=== PATIENT | female | born 1960 | race Caucasian/White ===

== ENCOUNTER 2021-12-18 18:20 | Inpatient (IN) | payer BC ==
[~2021-12-18] VITALS: Ht 160 cm; Wt 66.0 kg
[2021-12-18 19:00] VITALS: BP_SYST 156
[2021-12-18] MEDS ORDERED: MAG HYDROX/AL HYDROX/SIMETH 30 ML, LIDOCAINE VISCOUS 2% 15ML (PO) 15 ML, DICYCLOMINE HC... PO ONE ×3 (21:00)
[2021-12-18] MEDS ORDERED: MECLIZINE HCL 25 MG TABLET (ANITVERT) PO ONE (21:00)
[2021-12-18 21:29] LABS: BASOPHILS % (AUTO) 0.4 % (0.0-2.0); EOSINOPHILS % (AUTO) 0.3 % (0.0-4.0); HEMATOCRIT 42.9 % (36-48); LYMPHOCYTES # (AUTO) 0.6 K/uL (1.0-5.5); LYMPHOCYTES % (AUTO) 8.1 % (20.5-51.5); MEAN CORPUSCULAR VOLUME 93 fL (79.0-98.0); MONOCYTES # (AUTO) 0.4 K/uL (0.0-1.0); MONOCYTES % (AUTO) 5.4 % (1.7-9.3); NEUTROPHILS # (AUTO) 6.7 K/uL (1.8-7.7); NEUTROPHILS % (AUTO) 85.8 % (40.0-70.0); PLATELET COUNT (AUTO) 219 K/uL (130-430); RED BLOOD CELL COUNT(AUTO) 4.61 MIL/uL (4.2-6.2); RED CELL DISTRIBUTION WIDTH 12.4 % (9.0-15.0); WHITE BLOOD COUNT (AUTO) 7.9 K/uL (4.8-10.8)
[2021-12-18 21:30] LABS: ANION GAP 7 (5-15); CALCIUM 9.6 mg/dL (8.4-11.0); CHLORIDE 102 mmol/L (98-107); CREATININE 0.94 mg/dL (0.55-1.30); GLUCOSE 129 mg/dL (70-99); POTASSIUM 3.8 mmol/L (3.5-5.1); UREA NITROGEN, BLOOD 11 mg/dL (8-21)
[2021-12-18 21:31] LABS: GFR AFRICAN AMERICAN 78 mL/min (>90)
[2021-12-18 21:39] LABS: ALANINE AMINOTRANSFERASE 26 U/L (12-78); ALBUMIN 3.9 g/dL (3.4-4.8); ASPARTATE AMINOTRANSFERASE 26 U/L (10-37); TOTAL BILIRUBIN 1.3 mg/dL (0.0-1.0)
[2021-12-19] MEDS ORDERED: ASPIRIN 325 MG TABLET PO ONE (00:15)
[2021-12-19] MEDS ORDERED: ASPI-859 PO (01:47)
[2021-12-19] MEDS ORDERED: ESCI10TA PO (01:48)
[2021-12-19] MEDS ORDERED: METO25TA6 PO (01:49)
[2021-12-19] MEDS ORDERED: SIMV-343 PO (02:06)
[2021-12-19] MEDS ORDERED: ONDANSETRON HCL 4 MG/2 ML VIAL IVP PRN (02:30)
[2021-12-19] MEDS ORDERED: LORazepam 2 MG/ML VIAL IVP PRN (02:30)
[2021-12-19] MEDS ORDERED: HYDROcodone/ACETAMIN 5-325 MG TAB (NORCO/ VICODIN) PO PRN (02:30)
[2021-12-19] MEDS ORDERED: NALOXONE HCL 0.4 MG/ML AMP (NARCAN) IVP PRN ×2 (02:30)
[2021-12-19] MEDS ORDERED: HYDROcodone/ACETAMIN 10-325 MG TAB PO PRN (02:30)
[2021-12-19] MEDS ORDERED: MECLIZINE HCL 25 MG TABLET (ANITVERT) PO PRN (02:30)
[2021-12-19 03:35] VITALS: BP_SYST 141
[2021-12-19 04:00] VITALS: BP_SYST 139
[2021-12-19] MEDS ORDERED: NORMAL SALINE 5 ML DISP.SYRIN IVF SCH (06:00)
[2021-12-19] MEDS ORDERED: FLU VACC QS2022-23(6MOS UP)/PF 0.5 ML/SYR SYRINGE I.M. PRN (07:30)
[2021-12-19 08:00] VITALS: BP_SYST 113
[2021-12-19 08:38] LABS: BASOPHILS # (AUTO) 0.1 K/uL (0.0-0.2); BASOPHILS % (AUTO) 0.8 % (0.0-2.0); EOSINOPHILS # (AUTO) 0.1 K/uL (0.0-0.4); EOSINOPHILS % (AUTO) 1.4 % (0.0-4.0); HEMATOCRIT 41.6 % (36-48); LYMPHOCYTES # (AUTO) 1.2 K/uL (1.0-5.5); LYMPHOCYTES % (AUTO) 17.2 % (20.5-51.5); MEAN CORPUSCULAR VOLUME 93 fL (79.0-98.0); MONOCYTES # (AUTO) 0.6 K/uL (0.0-1.0); MONOCYTES % (AUTO) 8.8 % (1.7-9.3); NEUTROPHILS # (AUTO) 4.9 K/uL (1.8-7.7); NEUTROPHILS % (AUTO) 71.8 % (40.0-70.0); PLATELET COUNT (AUTO) 216 K/uL (130-430); RED BLOOD CELL COUNT(AUTO) 4.46 MIL/uL (4.2-6.2); RED CELL DISTRIBUTION WIDTH 12.5 % (9.0-15.0); WHITE BLOOD COUNT (AUTO) 6.9 K/uL (4.8-10.8)
[2021-12-19] MEDS ORDERED: METOPROLOL TARTRATE 25 MG TABLET PO SCH (09:00)
[2021-12-19] MEDS ORDERED: ASPIRIN 81 MG TABLET(ECOTRIN) PO SCH (09:00)
[2021-12-19] MEDS ORDERED: CITALOPRAM HYDROBROMIDE 20 MG TABLET PO SCH (09:00)
[2021-12-19 09:03] LABS: ALBUMIN 3.7 g/dL (3.4-4.8); CALCIUM 9.1 mg/dL (8.4-11.0); CREATININE 0.89 mg/dL (0.55-1.30); PHOSPHORUS 4.1 mg/dL (2.7-4.5); POTASSIUM 3.5 mmol/L (3.5-5.1); THYROID STIMULATING HORMONE 1.21 uIu/mL (0.36-3.74); TOTAL BILIRUBIN 1.3 mg/dL (0.0-1.0)
[2021-12-19 12:00] VITALS: BP_SYST 108
[2021-12-19] MEDS ORDERED: ISO10 PO (12:43)
[2021-12-19] MEDS ORDERED: METO25TA3 PO (13:57)
[2021-12-19] MEDS ORDERED: ISOS10TA54 PO (14:32)
[2021-12-19 16:00] VITALS: BP_SYST 112
[2021-12-19 20:38] VITALS: BP_SYST 128
[2021-12-19] MEDS: SIMVASTATIN 20 MG TABLET PO SCH (21:14)
[2021-12-19] MEDS: NORMAL SALINE 5 ML DISP.SYRIN IVF SCH (21:14)
[2021-12-20] MEDS: NORMAL SALINE 5 ML DISP.SYRIN IVF SCH ×4 (06:00→20:42)
[2021-12-20 07:21] LABS: BASOPHILS % (AUTO) 0.6 % (0.0-2.0); EOSINOPHILS # (AUTO) 0.2 K/uL (0.0-0.4); EOSINOPHILS % (AUTO) 4.2 % (0.0-4.0); HEMATOCRIT 39.7 % (36-48); LYMPHOCYTES # (AUTO) 1.4 K/uL (1.0-5.5); LYMPHOCYTES % (AUTO) 27.6 % (20.5-51.5); MEAN CORPUSCULAR VOLUME 93 fL (79.0-98.0); MONOCYTES # (AUTO) 0.5 K/uL (0.0-1.0); MONOCYTES % (AUTO) 9.9 % (1.7-9.3); NEUTROPHILS # (AUTO) 2.9 K/uL (1.8-7.7); NEUTROPHILS % (AUTO) 57.7 % (40.0-70.0); PLATELET COUNT (AUTO) 206 K/uL (130-430); RED BLOOD CELL COUNT(AUTO) 4.27 MIL/uL (4.2-6.2); RED CELL DISTRIBUTION WIDTH 12.3 % (9.0-15.0)
[2021-12-20 08:00] VITALS: BP_SYST 149
[2021-12-20 08:03] LABS: CALCIUM 8.7 mg/dL (8.4-11.0); CREATININE 0.95 mg/dL (0.55-1.30); POTASSIUM 3.6 mmol/L (3.5-5.1)
[2021-12-20] MEDS ORDERED: ISOSORBIDE MONONITRATE 20 MG TABLET (ISMO) PO SCH (09:00)
[2021-12-20] MEDS: METOPROLOL SUCCINATE 25 MG TAB.SR.24H (TOPROL XL) PO SCH (09:24)
[2021-12-20 12:00] VITALS: BP_SYST 155
[2021-12-20] MEDS: ACETAMINOPHEN 325 MG TABLET PO PRN ×2 (13:29→23:59)
[2021-12-20 16:00] VITALS: BP_SYST 153
[2021-12-20 19:46] VITALS: BP_SYST 159
[2021-12-20] MEDS: SIMVASTATIN 20 MG TABLET PO SCH (20:40)
[2021-12-20] MEDS ORDERED: ASPIRIN 81 MG TABLET(ECOTRIN) PO SCH (21:00)
[2021-12-20] MEDS ORDERED: CITALOPRAM HYDROBROMIDE 20 MG TABLET PO SCH (21:00)
[2021-12-20 23:59] VITALS: BP_SYST 159
[2021-12-21 07:09] LABS: BASOPHILS # (AUTO) 0.1 K/uL (0.0-0.2); BASOPHILS % (AUTO) 0.9 % (0.0-2.0); EOSINOPHILS # (AUTO) 0.3 K/uL (0.0-0.4); EOSINOPHILS % (AUTO) 5.1 % (0.0-4.0); HEMATOCRIT 38.8 % (36-48); HEMOGLOBIN 13.7 g/dL (12.0-16.0); LYMPHOCYTES # (AUTO) 1.8 K/uL (1.0-5.5); LYMPHOCYTES % (AUTO) 31.2 % (20.5-51.5); MEAN CORPUSCULAR HEMOGLOBIN 33 pg (27-31); MEAN CORPUSCULAR HGB CONC 35 % (32-36); MEAN CORPUSCULAR VOLUME 93 fL (79.0-98.0); MONOCYTES # (AUTO) 0.5 K/uL (0.0-1.0); MONOCYTES % (AUTO) 9.2 % (1.7-9.3); NEUTROPHILS % (AUTO) 53.6 % (40.0-70.0); PLATELET COUNT (AUTO) 215 K/uL (130-430); RED BLOOD CELL COUNT(AUTO) 4.17 MIL/uL (4.2-6.2); RED CELL DISTRIBUTION WIDTH 12.2 % (9.0-15.0); WHITE BLOOD COUNT (AUTO) 5.7 K/uL (4.8-10.8)
[2021-12-21 09:15] LABS: CALCIUM 8.8 mg/dL (8.4-11.0); CREATININE 0.95 mg/dL (0.55-1.30); POTASSIUM 3.9 mmol/L (3.5-5.1)
[2021-12-21] MEDS: METOPROLOL SUCCINATE 25 MG TAB.SR.24H (TOPROL XL) PO SCH (09:59)
[2021-12-21 11:29] VITALS: BP_SYST 130
[2021-12-21 12:00] VITALS: BP_SYST 151
[2021-12-21] MEDS ORDERED: ISOSORBIDE MONONITRATE 10 MG PO SCH (12:00)
== END 2021-12-21 11:30 | disposition home or self-care (01) | DRG 282 ==
LOC: SED 18:20 → STU 12-19 00:11 → SMU 12-21 00:49
PROVIDERS: ADMIT Preventive Medicine Preventive Medicine/Occupational Environmental Medicine; ATTEND Preventive Medicine Preventive Medicine/Occupational Environmental Medicine
DX: I21.4 Non-ST elevation (NSTEMI) myocardial infarction (principal); I10 Essential (primary) hypertension; I25.10 Atherosclerotic heart disease of native coronary artery without angina pectoris; F41.9 Anxiety disorder, unspecified; F32.A Depression, unspecified; Z20.822 Contact with and (suspected) exposure to COVID-19; N64.4 Mastodynia; E78.5 Hyperlipidemia, unspecified; Z95.1 Presence of aortocoronary bypass graft; Z79.899 Other long term (current) drug therapy; Z79.82 Long term (current) use of aspirin
CPT/HCPCS: 36415; 70450-TC; 71045; 76376; 80048; 80053; 80061; 83735; 84100; 84443; 84484; 85025; 93005; 93306; 93880; 99291; G0378; J2001; J2060; J8597